=== PATIENT | male | born 1950 | race Two or more races ===

== ENCOUNTER 2022-07-11 10:03 | Inpatient (IN) | payer MEDICARE, OTHER ==
[~2022-07-11] VITALS: Ht 180.3 cm; Wt 72.4 kg
[2022-07-11 10:49] LABS: Basophils # (auto) 0.1 10 ^3/uL (0-0.2); Basophils % (auto) 0.8 % (0.0-2.0); Eosinophils # (auto) 0.2 10 ^3/uL (0-0.8); Eosinophils % (auto) 2.9 % (0.0-7.0); Hematocrit 44.4 % (41.0-53.0); Hemoglobin 14.6 g/dL (13.5-17.5); Lymphocytes # (auto) 2.6 10 ^3/uL (0.4-5.4); Lymphocytes % (auto) 32.5 % (10.0-50.0); Mean Corpuscular Hemoglobin 31.4 pg (28.0-32.0); Mean Corpuscular Hgb Conc. 32.8 g/dL (32.0-36.0); Mean Corpuscular Volume 95.9 fL (80.0-100.0); Monocytes # (auto) 0.7 10 ^3/uL (0-1.3); Monocytes % (auto) 9.4 % (0.0-12.0); Neutrophils # (auto) 4.3 10 ^3/uL (1.6-8.6); Neutrophils % (auto) 54.4 % (37.0-80.0); Nucleated Red Blood Cells % 0.1 %; Red Blood Cells 4.63 10^6/uL (4.5-5.90); Red Cell Distribution Width 14.2 % (11.8-14.3)
[2022-07-11 11:04] LABS: Albumin 3.3 g/dL (3.4-5.0); Calcium 9.1 mg/dL (8.5-10.1); Magnesium 2.7 mg/dL (1.6-2.6); Potassium 4.4 mmol/L (3.5-5.1)
[2022-07-11 11:08] LABS: BUN/Creatinine Ratio 21.2; Bilirubin, Total 0.4 mg/dL (0.2-1.0); Total Protein 6.3 g/dL (6.4-8.2)
[2022-07-11] MEDS ORDERED: ASPirin 325 MG TAB PO ONE (11:15)
[2022-07-11 11:17] LABS: INR 1.03 (0.9-1.15)
[2022-07-11] MEDS ORDERED: DEXTROSE (50%) 50ML SYRG IV PRN (13:00)
[2022-07-11] MEDS ORDERED: NITROGLYCERIN 0.4 MG SL TAB SL PRN (13:00)
[2022-07-11] MEDS ORDERED: MORPHINE SULFATE INJ 2 MG/ml SYRG IV PRN (13:00)
[2022-07-11] MEDS: InsuLIN REG 1unit/0.01ml Soln (100units/ml) SC SCH (18:00)
[2022-07-11] MEDS: ACCU-CHEK COMFORT CURVE STRIP VI SCH (18:18)
[2022-07-11] MEDS ORDERED: ALBUTEROL SULF 2.5 MG/0.5ML(0.5%) NEB SOLN NEB PRN (20:45)
[2022-07-11 21:57] VITALS: BP 163/86
[2022-07-11 22:00] VITALS: BP 146/81
[2022-07-11] MEDS ORDERED: ATORVASTATIN 20 MG TAB PO SCH (22:00)
[2022-07-12 01:00] VITALS: BP 146/81
[2022-07-12] MEDS: ACCU-CHEK COMFORT CURVE STRIP VI SCH ×4 (03:24→17:36)
[2022-07-12 05:00] VITALS: BP 134/77
[2022-07-12] MEDS: InsuLIN REG 1unit/0.01ml Soln (100units/ml) SC SCH ×4 (05:43→17:36)
[2022-07-12 09:00] VITALS: BP 121/68
[2022-07-12] MEDS ORDERED: FUROSEMIDE 20 MG/2 ML VIAL IV SCH (10:00)
[2022-07-12] MEDS ORDERED: ASPirin 325 MG TAB PO SCH (10:00)
[2022-07-12] MEDS: PANTOPRAZOLE 40 MG TAB PO SCH (10:39)
[2022-07-12] MEDS: LOSARTAN POTASSIUM 25 MG TAB PO SCH (10:39)
[2022-07-12] MEDS: ENOXAPARIN SOD 40 MG/0.4 ML SYRINGE SC SCH (10:39)
[2022-07-12] MEDS: NICOTINE 21MG/24 HR TOPICAL PATCH TD SCH (10:40)
[2022-07-12 13:00] VITALS: BP 136/87
[2022-07-12 17:00] VITALS: BP 147/86
[2022-07-12] MEDS: TAMSULOSIN HYDROCHLORIDE 0.4 MG CAP PO SCH (17:36)
[2022-07-12] MEDS ORDERED: ONDANSETRON HCL 4 MG/2 ML VIAL IV PRN (18:30)
[2022-07-12] MEDS: ATORVASTATIN 20 MG TAB PO SCH (21:54)
[2022-07-12] MEDS ORDERED: TEMAZEPAM 15 MG CAP PO PRN (22:00)
[2022-07-13] VITALS (7 sets, daily range): BP systolic 95–131; BP diastolic 55–83
[2022-07-13] MEDS: ACCU-CHEK COMFORT CURVE STRIP VI SCH ×2 (00:54→06:26)
[2022-07-13 05:49] LABS: Cholesterol 159 mg/dL (< 200)
[2022-07-13 05:52] LABS: HDL Cholesterol 55 mg/dL (40-59); LDL Cholesterol 87 mg/dL (< 100); Triglycerides 131 mg/dL (< 150)
[2022-07-13] MEDS: InsuLIN REG 1unit/0.01ml Soln (100units/ml) SC SCH ×2 (06:00)
[2022-07-13] MEDS ORDERED: ALPRAZolam 0.25 MG TAB PO PRN ×2 (09:30→22:00)
[2022-07-13] MEDS: NICOTINE 21MG/24 HR TOPICAL PATCH TD SCH (11:34)
[2022-07-13] MEDS: ASPirin 81 mg TAB PO SCH (11:36)
[2022-07-13] MEDS: LOSARTAN POTASSIUM 25 MG TAB PO SCH (11:52)
[2022-07-13] MEDS: PANTOPRAZOLE 40 MG TAB PO SCH (11:52)
[2022-07-13] MEDS: SODIUM CHLORIDE 0.9% 1,000 ML IV SCH (11:53)
[2022-07-13] MEDS: ENOXAPARIN SOD 40 MG/0.4 ML SYRINGE SC SCH (11:53)
[2022-07-13] MEDS: GADOTERATE MEG 10 MMOL/20ml INJ (0.5MMOL/ml) IV ONE ×2 (14:05→17:07)
[2022-07-13] MEDS: TAMSULOSIN HYDROCHLORIDE 0.4 MG CAP PO SCH (17:07)
[2022-07-13] MEDS: ATORVASTATIN 20 MG TAB PO SCH (22:04)
[2022-07-14] MEDS: SODIUM CHLORIDE 0.9% 1,000 ML IV SCH (02:10)
[2022-07-14 05:00] VITALS: BP 111/70
[2022-07-14 08:29] VITALS: BP_SYST 114; BP_SYST 118; BP_SYST 99; BP_DIAS 75; BP_DIAS 78; BP_DIAS 96
[2022-07-14] MEDS: PANTOPRAZOLE 40 MG TAB PO SCH (09:16)
[2022-07-14] MEDS: ASPirin 81 mg TAB PO SCH (09:16)
[2022-07-14] MEDS: ENOXAPARIN SOD 40 MG/0.4 ML SYRINGE SC SCH (09:17)
[2022-07-14] MEDS: NICOTINE 21MG/24 HR TOPICAL PATCH TD SCH (09:18)
[2022-07-14 10:56] LABS: Urine Bacteria NONE SEEN /hpf (None Seen); Urine WBC 8 /hpf (0 - 3)
[2022-07-14 12:33] VITALS: BP_SYST 118; BP_SYST 119; BP_DIAS 67; BP_DIAS 77
[2022-07-14 12:34] VITALS: BP 115/70
[2022-07-14] MEDS ORDERED: CARV12.544 PO (14:52)
[2022-07-14] MEDS ORDERED: NITR0.4S29 SL (14:52)
[2022-07-14] MEDS ORDERED: TIOTCAP IN (14:52)
[2022-07-14] MEDS ORDERED: CYCL-837 PO (14:52)
[2022-07-14] MEDS ORDERED: GABA300C10 PO (14:52)
[2022-07-14] MEDS ORDERED: BUPR75TA11 PO (14:52)
[2022-07-14] MEDS ORDERED: LEVO137T3 PO (14:52)
[2022-07-14] MEDS ORDERED: RANO500T PO (14:52)
[2022-07-14] MEDS ORDERED: CYAN100056 PO (14:52)
[2022-07-14] MEDS ORDERED: CALC150C PO (14:52)
[2022-07-14] MEDS ORDERED: TAMS0.4C36 PO (14:52)
[2022-07-14] MEDS ORDERED: ASPI-498 OR (14:52)
[2022-07-14] MEDS ORDERED: ROSU20TA14 PO (14:52)
[2022-07-14] MEDS ORDERED: FAMO20TA10 PO (14:52)
[2022-07-14] MEDS ORDERED: EZET10TA22 PO (14:52)
[2022-07-14] MEDS ORDERED: ALBUAER3 IN (14:52)
[2022-07-14 17:12] VITALS: BP 118/67
[2022-07-15 09:44] LABS: Free T4 (Free Thyroxine) 1.2 ng/dL (0.89-1.76)
[2022-07-15 09:47] LABS: Folate (Folic Acid) 21.63 ng/mL (5.38-24)
== END 2022-07-14 17:55 | disposition home or self-care (01) | DRG 948 ==
LOC: ER 10:03 → TELE 12:59 → TELE-WESTW 23:27
PROVIDERS: ADMIT Nurse Practitioner Family; ATTEND Student in an Organized Health Care Education/Training Program
DX: R53.1 Weakness (principal); E03.9 Hypothyroidism, unspecified; N40.0 Benign prostatic hyperplasia without lower urinary tract symptoms; Z20.822 Contact with and (suspected) exposure to COVID-19; E78.5 Hyperlipidemia, unspecified; E11.9 Type 2 diabetes mellitus without complications; I25.10 Atherosclerotic heart disease of native coronary artery without angina pectoris; I10 Essential (primary) hypertension; F17.200 Nicotine dependence, unspecified, uncomplicated; Z71.6 Tobacco abuse counseling; I25.2 Old myocardial infarction; Z83.3 Family history of diabetes mellitus; Z95.1 Presence of aortocoronary bypass graft; Z88.8 Allergy status to other drugs, medicaments and biological substances
CPT/HCPCS: 36415; 70450; 70551; 71045; 72141; 72158; 80053; 80061; 80320; 81015; 82607; 82746; 82962; 83036; 83735; 84154; 84439; 84443; 84484; 85025; 85610; 85652; 85730; 86592; 87426; 92610; 93005; 93306; 93886; 95819; 97163; G0378

== ENCOUNTER 2023-07-01 11:49 | Inpatient (IN) | payer MEDICARE, OTHER ==
[~2023-07-01] VITALS: Ht 177.8 cm; Wt 75.6 kg
[~2023-07-01 11:49] MED LIST: ALBUAER3 IN; ASPI-498 OR; BUPR75TA89 PO; CALC150C PO; CYAN100056 PO; CYCL-837 PO; EZET10TA22 PO; FAMO20TA10 PO; GABA-1250 PO; LEVO137T3 PO; NITR0.4S29 SL; RANO500T PO; ROSU20TA14 PO; TAMS0.4C36 PO; TIOTCAP IN
[2023-07-01 12:11] VITALS: BP 134/83
[2023-07-01] MEDS ORDERED: IPRATROPIUM BROM 0.5 MG/2.5ML INH SOL NEB ONE (12:15)
[2023-07-01] MEDS ORDERED: ALBUTEROL SULF 2.5 MG/0.5ML(0.5%) NEB SOLN NEB ONE (12:15)
[2023-07-01] MEDS ORDERED: ALBUTEROL MEDNEB 2.5 mg/3ml NEB ONE (12:18)
[2023-07-01 12:20] LABS: Basophils # (auto) 0.1 10 ^3/uL (0-0.2); Basophils % (auto) 0.8 % (0.0-2.0); Eosinophils # (auto) 0.3 10 ^3/uL (0-0.8); Eosinophils % (auto) 3.4 % (0.0-7.0); Hematocrit 44.3 % (41.0-53.0); Hemoglobin 14.9 g/dL (13.5-17.5); Lymphocytes # (auto) 2.6 10 ^3/uL (0.4-5.4); Lymphocytes % (auto) 32.7 % (10.0-50.0); Mean Corpuscular Hemoglobin 31.6 pg (28.0-32.0); Mean Corpuscular Hgb Conc. 33.7 g/dL (32.0-36.0); Monocytes # (auto) 0.6 10 ^3/uL (0-1.3); Monocytes % (auto) 7.6 % (0.0-12.0); Neutrophils # (auto) 4.5 10 ^3/uL (1.6-8.6); Neutrophils % (auto) 55.5 % (37.0-80.0); Nucleated Red Blood Cells % 0.1 %; Red Blood Cells 4.71 10^6/uL (4.5-5.90); Red Cell Distribution Width 14.7 % (11.8-14.3); White Blood Cell 8.1 10^3/uL (4.4-10.8)
[2023-07-01 12:28] VITALS: RESP 16; O2SAT 92
[2023-07-01 12:53] LABS: Alanine Aminotransferase 15 U/L (7-40); Alkaline Phosphatase 60 U/L (46-116); Anion Gap 2 (5-15); Aspartate Aminotransferase 15 U/L (13-40); BUN/Creatinine Ratio 16.9 (10.0-20.0); Bilirubin, Total 0.4 mg/dL (0.2-1.0); Blood Urea Nitrogen 21 mg/dL (9-23); Calcium 9.5 mg/dL (8.5-10.1); Carbon Dioxide 31 mmol/L (20-30); Chloride 108 mmol/L (98-107); Glucose 93 mg/dL (74-106); Potassium 4.6 mmol/L (3.5-5.1); Sodium 141 mmol/L (136-145)
[2023-07-01 13:15] LABS: Urine Bacteria NONE SEEN /hpf (None Seen); Urine Blood Negative /uL (Negative); Urine Clarity Clear (Clear); Urine Color Yellow (Yellow); Urine Mucus FEW (None Seen); Urine Protein, UAD Negative (Negative); Urine Specific Gravity 1.022 (1.001-1.035); Urine Urobilinogen Normal (Negative); Urine WBC 1 /hpf (0 - 3); Urine pH 5.5 (5.0-8.0)
[2023-07-01 13:31] VITALS: PULSE 72
[2023-07-01] MEDS ORDERED: methylPREDNISolone SOD SUCC 125 MG/2 ML VL IV ONE (13:45)
[2023-07-01] MEDS ORDERED: cefTRIAXone 1GM/50ML D5W 50 ML IV ONE (15:30)
[2023-07-01] MEDS ORDERED: HYDROcodone-ACET 5/325MG TAB PO PRN (15:45)
[2023-07-01] MEDS ORDERED: MORPHINE SULFATE INJ 2 MG/ml SYRG IV PRN ×2 (15:45)
[2023-07-01] MEDS ORDERED: ACETAMINOPHEN 325 MG TAB PO PRN (15:45)
[2023-07-01] MEDS ORDERED: NICOTINE 14 MG/24HR TOPICAL PATCH TD SCH (16:00)
[2023-07-01] MEDS ORDERED: AZITHROMYCIN 250 MG TAB PO SCH (16:00)
[2023-07-01] MEDS ORDERED: PANTOPRAZOLE 40 MG TAB PO SCH (16:45)
[2023-07-01 17:14] LABS: COVID19 ANTIGEN SOFIA FIA NEGATIVE (NEGATIVE); Rapid Influenza A Negative (Negative); Rapid Influenza B Negative (Negative)
[2023-07-01 17:21] LABS: Triglycerides 134 mg/dL (< 150)
[2023-07-01 17:22] LABS: LDL Cholesterol 93 mg/dL (< 100)
[2023-07-01 17:23] LABS: Cholesterol 152 mg/dL (< 200); HDL Cholesterol 40 mg/dL (40-59)
[2023-07-01] MEDS ORDERED: guaiFENesin-DM 100/10mg/5ml SYR PO SCH (18:00)
[2023-07-01] MEDS ORDERED: TAMSULOSIN HYDROCHLORIDE 0.4 MG CAP PO SCH (18:00)
[2023-07-01] MEDS ORDERED: ALBUTEROL MEDNEB 2.5 mg/3ml NEB NEB SCH (22:00)
[2023-07-01] MEDS ORDERED: BUDESONIDE (INHALATION) 0.5 MG/2 ML NEB NEB SCH (22:00)
[2023-07-01] MEDS ORDERED: CARVEDILOL 12.5 MG TAB PO SCH (22:00)
[2023-07-01] MEDS ORDERED: methylPREDNISolone SOD SUCC 40 MG/ML VL IV SCH (22:00)
[2023-07-01] MEDS ORDERED: ATORVASTATIN 20 MG TAB PO SCH (22:00)
[2023-07-02] MEDS ORDERED: LEVOTHYROXINE SODIUM 25 MCG TAB PO SCH (07:00)
[2023-07-02] MEDS ORDERED: LEVOTHYROXINE SODIUM 112 MCG TAB PO SCH (07:00)
[2023-07-02] MEDS ORDERED: ASPirin 81 mg TAB PO SCH (10:00)
[2023-07-03 07:07] LABS: PSA Free 0.27 ng/mL; Prostate Specific Antigen 1.9 ng/mL (0.0-4.0)
== END 2023-07-01 21:34 | disposition left against medical advice (07) | DRG 192 ==
LOC: ER 11:49 → OVERFLOW 15:43
PROVIDERS: ADMIT Internal Medicine; ATTEND Internal Medicine
DX: J44.1 Chronic obstructive pulmonary disease with (acute) exacerbation (principal); F17.210 Nicotine dependence, cigarettes, uncomplicated; I10 Essential (primary) hypertension; N40.0 Benign prostatic hyperplasia without lower urinary tract symptoms; Z20.822 Contact with and (suspected) exposure to COVID-19; I25.10 Atherosclerotic heart disease of native coronary artery without angina pectoris; Z86.73 Personal history of transient ischemic attack (TIA), and cerebral infarction without residual deficits; Z95.1 Presence of aortocoronary bypass graft; I25.2 Old myocardial infarction; Z71.6 Tobacco abuse counseling; Z88.8 Allergy status to other drugs, medicaments and biological substances
CPT/HCPCS: 36415; 71045; 80053; 80061; 81001; 83880; 84154; 84443; 84484; 85025; 85379; 87426; 87804; 93005; 94640; 96374; G0378

== ENCOUNTER 2023-11-18 16:44 | Emergency (ER) | payer OTHER ==
[~2023-11-18] VITALS: Ht 177.8 cm; Wt 79.3 kg
[2023-11-18 17:34] VITALS: BP 130/86; PULSE 95; RESP 18; O2SAT 93
[2023-11-18] MEDS: HYDROcodone-ACET 5/325MG TAB PO ONE (21:34)
[2023-11-18] MEDS: ONDANSETRON ODT 4 MG TAB PO ONE (21:34)
[2023-11-18] MEDS ORDERED: CEPH500C PO (23:04)
[2023-11-18] MEDS ORDERED: ACET500T58 PO (23:04)
== END 2023-11-18 23:25 | disposition home or self-care (01) ==
LOC: ER 16:44
DX: S61.210A Laceration without foreign body of right index finger without damage to nail, initial encounter (principal); S61.216A Laceration without foreign body of right little finger without damage to nail, initial encounter; J44.9 Chronic obstructive pulmonary disease, unspecified; I10 Essential (primary) hypertension; Z86.73 Personal history of transient ischemic attack (TIA), and cerebral infarction without residual deficits; Z88.6 Allergy status to analgesic agent; X58.XXXA Exposure to other specified factors, initial encounter; Y93.89 Activity, other specified; Y92.89 Other specified places as the place of occurrence of the external cause; Y99.8 Other external cause status
CPT/HCPCS: 73130; 99283; Q0162

== ENCOUNTER 2023-12-01 11:43 | Emergency (ER) | payer OTHER ==
[~2023-12-01] VITALS: Ht 182.9 cm; Wt 118.4 kg
[~2023-12-01 11:43] MED LIST changes: +ACET500T58 PO; +CEPH500C PO
[2023-12-01 15:00] VITALS: BP 130/80; PULSE 60; RESP 16; TEMP 98; O2SAT 95
== END 2023-12-01 15:49 | disposition home or self-care (01) ==
LOC: ER 11:43
DX: S61.411D Laceration without foreign body of right hand, subsequent encounter (principal); J44.9 Chronic obstructive pulmonary disease, unspecified; I10 Essential (primary) hypertension; F17.210 Nicotine dependence, cigarettes, uncomplicated; I25.2 Old myocardial infarction; Z88.6 Allergy status to analgesic agent; Z86.73 Personal history of transient ischemic attack (TIA), and cerebral infarction without residual deficits; X58.XXXD Exposure to other specified factors, subsequent encounter